=== PATIENT | female | born 1970 | race Caucasian/White ===

== ENCOUNTER 2019-07-06 09:43 | Emergency (ER) | payer BC ==
--- NOTE | 2019-07-06 10:50 | UC ---
Dental HPI - HPI Summary HPI Summary: This AM was brushing teeth and after brushing her tongue the back of tongue had started to bleed. She noticed it was coming from one of her bumps in back of tongue. then she noticed another bump has 'white stuff' there was on it. she is not a smoker. - History of Current Complaint Chief Complaint: UCDentalProblem Stated Complaint: ORAL COMPLAINT Time Seen by Provider: 07/06/19 10:49 - Allergies/Home Medications Allergies/Adverse Reactions: Allergies Allergy/AdvReac Type Severity Reaction Status Date / Time No Known Allergies Allergy Verified 07/06/19 11:00 Home Medications: Home Medications Cetirizine* [ZyrTEC 10 MG TAB*] 10 mg PO DAILY 07/06/19 [History Confirmed 07/06] PMH/Surg Hx/FS Hx/Imm Hx - Additional Past Medical History Additional PMH: no chronic illness Previously Healthy: Yes Review of Systems All Other Systems Reviewed And Are Negative: Yes Constitutional: Negative: Fever ENT: Positive: Other - see hpi. Negative: Dental Pain, Sore Throat Physical Exam Triage Information Reviewed: Yes Appearance: Well-Appearing Vital Signs Reviewed: Yes ENT: Positive: Other - tongue: villate papillae noted one w/ irritation but no active bleeding, and another w/ whitish covering. all nontender or no discharge /purulent material. no other oral lesions. Neck: Positive: Supple, Nontender, No Lymphadenopathy Dental Complaint Course/Dx - Course Course Of Treatment: Villate papillae w/ irritation and other w/ whitish covering. Irritation likely from brushing too hard but have recommended she see ENT for further eval Reassuring that she is a nonsmoker. vitals good. - Differential Dx/Diagnosis Differential Diagnosis/Dx: Gingivitis, Tonsillitis, Other Provider Diagnosis: Tongue abnormality Discharge ED - Sign-Out/Discharge Documenting (check all that apply): Patient Departure All imaging exams completed and their final reports reviewed: No Studies - Discharge Plan Condition: Good Disposition: HOME Patient Education Materials: Oral Mucositis (ED) Referrals: Raleigh Trimble MD [Medical Doctor] - Rose Marie Marcial MD [Primary Care Provider] - Chantale Way MD [Medical Doctor] - Additional Instructions: Please follow up with ENT for further evaluation. - Billing Disposition and Condition Condition: GOOD Disposition: Home - Attestation Statements Provider Attestation: Per institutional requirements, I have reviewed the chart, however, I was not consulted specifically or made aware of this patient by the midlevel provider. I did not personally evaluate, interact with, or disposition this patient. EK
[2019-07-06 10:59] VITALS: BP 148/82
== END 2019-07-06 11:29 | disposition home or self-care (01) ==
LOC: UCCORT 09:43
DX: K14.8 Other diseases of tongue (principal)
CPT/HCPCS: 99211; G0463